=== PATIENT | male | born 1980 | race Hispanic/Latino ===

== ENCOUNTER 2021-01-01 18:42 | Emergency (ER) | payer BC, SELFPAY ==
[~2021-01-01 18:42] MED LIST: Iopamidol 370 76% 100 ML VIAL ONE
[2021-01-01] MEDS ORDERED: Ibuprofen 800 MG TAB ONE (19:23)
[2021-01-01 20:25] LABS: #Lymphocytes 0.8 thou/uL (1.20-3.40); #Monocytes 0.3 thou/uL (0.11-0.59); #Neutrophils 3.7 thou/uL (1.40-6.50); %Basophils 0.2 % (0.0-1.0); %Lymphocytes 17.2 % (21.0-51.0); %Monocytes 5.7 % (0.0-10.0); %Neutrophils 76.9 % (42.0-75.0); Hemoglobin 16.7 g/dL (14.0-18.0); Mean Corpuscular Hemoglobin 28.9 pg (27.0-31.0); Mean Corpuscular Volume 82.5 fL (78.0-98.0); Mean Platelet Volume 8.3 fL (7.4-10.4); Platelet Count 138 thou/uL (130-400); RBC Distribution Width 10.9 % (11.5-14.5); Red Blood Cell (RBC) Count 5.79 mill/uL (4.70-6.10); White Blood Cell (WBC) Count 4.8 thou/uL (4.8-10.8)
[2021-01-01 20:43] LABS: Bilirubin Small (Negative); Blood, Urine Moderate (Negative); Clarity Slightly Cloudy (Clear); Glucose, Urine (Dipstick) 100 mg/dL (Negative); Ketone, Urine 40 mg/dL (Negative); Leukocyte Negative (Negative); Nitrite Negative (Negative); Protein, Urine (Dipstick) > or equal to 300 mg/dL (Neg-Trace); Specific Gravity, Urine 1.025 (1.005-1.030)
[2021-01-01 20:46] LABS: ALT (SGPT) 170 U/L (8-55); AST (SGOT) 172 U/L (5-34); Albumin 3.7 g/dL (3.5-5.0); Alkaline Phosphatase 133 U/L (40-110); Anion Gap 16 mmol/L (10-20); BUN (Urea Nitrogen) 12 mg/dL (8.9-20.6); Bilirubin, Total 0.8 mg/dL (0.2-1.2); Calc. Creatinine Clearance 0 mL/min (70-130); Carbon Dioxide 27 mmol/L (22-29); Chloride 97 mmol/L (98-107); Globulin 3.2 g/dL (2.4-3.5); Glucose 121 mg/dL (70-105); Protein, Total 6.9 g/dL (6.0-8.3); Sodium 137 mmol/L (136-145)
[2021-01-01 20:50] LABS: Bacteria/HPF Rare-Few HPF (None Seen); Oval Fat Bodies/HPF Rare HPF (None Seen); RBC/HPF 0-3 HPF (0-3); Squamous Epithelial 0-3 HPF (0-3); WBC/HPF 0-3 HPF (0-3)
[2021-01-01 21:00] LABS: Critical Call Chemistry NUR.CMA; Potassium 2.8 mmol/L (3.5-5.1)
[2021-01-01 21:04] LABS: CKMB 0.6 ng/mL (0-6.6)
[2021-01-01] MEDS ORDERED: Potassium Chloride 20 MEQ TAB PO SCH (21:30)
[2021-01-01] MEDS ORDERED: Dexamethasone 10 MG/ML VIAL ONE (22:21)
== END 2021-01-01 22:45 | disposition short-term general hospital (02) ==
LOC: BURERS 18:42
DX: U07.1 COVID-19 (principal); J12.89 Other viral pneumonia; R79.89 Other specified abnormal findings of blood chemistry; R77.8 Other specified abnormalities of plasma proteins; E87.6 Hypokalemia; I10 Essential (primary) hypertension
CPT/HCPCS: 36415; 71045; 71275; 80053; 81003; 81015; 82553; 83605; 83880; 84484; 85025; 85379; 87040; 93005; 94760; 96374; J1100; J7620; Q9967